=== PATIENT | male | born 1990 | race Hispanic/Latino ===

== ENCOUNTER 2019-10-29 23:12 | Emergency (ER) | payer BC ==
[2019-10-29] MEDS ORDERED: SODIUM CHLORIDE 0.9% (FLUSH) 10 ML SYG IV PRN (23:15)
[2019-10-29] MEDS ORDERED: SODIUM CHLORIDE 0.9% 1000ML 1,000 ML IVS ONE (23:15)
[2019-10-29] MEDS: SODIUM CHLORIDE 0.9% 1000ML 1,000 ML IVS ONE (23:18)
[2019-10-29] MEDS: NALOXONE HCL INJ 0.4 MG/ML VIAL IV ONE (23:19)
--- NOTE | 2019-10-29 23:23 | ED.PDOC ---
History of Present Illness - General Source: police, EMS - History of Present Illness Initial Comments: 29-year-old male brought in by EMS and police for chief complaint of altered mental status and agitation. Patient reportedly called 911 on himself for suicidal ideation. On scene patient was notably intoxicated and combative with police and EMS. There were visible empty containers of alcohol around but no other drugs or weapons. The patient was sedated with Versed 5 mg IV and placed in handcuffs and transported to the ED via EMS. He was noted to have bilateral pinpoint pupils and was given Narcan 2 mg IV with modest response in route. Noted to be tachycardic but vitals otherwise stable. Little other information was noted upon ED arrival. Care patient with initial GCS and 9, only arousable to vigorous sternal rub, localizing to painful stimuli, initially not verbal. Another 0.8 mg Narcan was given IV and patient had improvement in mental status and became awake and alert and verbal. He reported that he has been feeling depressed recently because a friend of his . He did admit to possibly having suicidal thoughts but did not have any particular plans. He denies any suicide attempts, intentional overdoses, or any other attempt of self-harm this evening. He does admit to drinking about 12 wine coolers since earlier this afternoon and reports being very intoxicated with alcohol. He denies any other drug usage this evening. He specifically denies any IV drug use, cocaine, meth, heroin, narcotic pain medications, other. Denies any history of usage of any of these in the past as well. He states that he lives in [place] with his Sister Eden and her boyfriend. He is unsure how he got over here today. He also complains of some shortness of breath, unsure how long it is been going on. Denies any other acute symptoms. Denies specifically chest pain, cough, fevers, chills, weakness, numbness, abdominal pain, nausea, diarrhea, leg swelling. EMS did report that he vomited 1 time in route. <Yehuda Eaton - Last Filed: 10/30/19 06:47> <Misael Walker - Last Filed: 10/30/19 08:35> - General Time Seen by Provider: 10/29/19 23:15 - History of Present Illness Allergies/Adverse Reactions: Allergies NO KNOWN ALLERGY Allergy (Verified 10/29/19 23:15) Review of Systems - Review of Systems Review of Systems: 10/29/19 23:23 As per HPI All other Systems: Reviewed and Negative <Yehuda Eaton - Last Filed: 10/30/19 06:47> Family Medical History - Family History Mother Family History: Unknown <Yehuda Eaton - Last Filed: 10/30/19 06:47> Physical Exam - Physical Exam General Appearance: Other - On arrival GCS of 9, appears disheveled in gym shorts and basketball Jersey with grass down the back Eye Exam: bilateral abnormal pupil - Bilateral pinpoint pupils, minimally reactive to light, bilateral other - Bilateral injected sub-conjunctiva Ears, Nose, Throat: other - Dry appearing oral mucosa. Bilateral green mucus nasal discharge noted. Neck: non-tender, full range of motion, supple, normal inspection Respiratory: chest non-tender, lungs clear, normal breath sounds, no respiratory distress, no accessory muscle use Cardiovascular/Chest: no edema, no gallop, no JVD, no murmur, tachycardia Peripheral Pulses: radial,right: 2+, radial,left: 2+ Gastrointestinal/Abdominal: normal bowel sounds, non tender, soft, no organomegaly, no pulsatile mass Back Exam: normal inspection, no CVA tenderness, no vertebral tenderness Extremity: normal range of motion, non-tender, normal inspection, no pedal edema, no calf tenderness, normal capillary refill, pelvis stable Neurologic: other - On arrival GCS of 9 (E2 V2 M5), arousable only to vigorous sternal rub, answered 1 simple yes/no questions after sternal rub, localizing to painful stimuli, noted to move all extremities spontaneously, no focal neurological deficits noted Skin Exam: normal color, warm/dry <Yehuda Eaton - Last Filed: 10/30/19 06:47> Progress - Progress Progress: 10/29/19 23:26 Altered mental status, agitation -Strongly suspect toxic etiology. Consider overdose. Consider also sepsis, ACS, metabolic derangement, hypoglycemia, dehydration, suicide attempt, other. -Monitor patient closely, place PIV, 2 L normal saline bolus, cardiac and sepsis and tox work-up. 10/29/19 23:57 -Patient remains stable. -I spoke with the patient's sister, Eden Blanc, via telephone who helped provide some collateral information about the patient. She states that the patient does live with her and her boyfriend in their apartment in [place], [place]. She states that they are currently away in [place] at the moment and the patient is staying by himself at the apartment. She has not heard from the patient today but did notice on his Facebook that he had mention he was depressed about his friend passing away and was also asking for drugs via Facebook. She is uncertain if he was able to obtain any drugs or if he took any drugs or attempted to harm himself this evening. She states he does have a history of suicidal ideation and suicide attempts in the past, but the last attempt was many years ago when they were in high school together. These attempts in the past were by cutting his wrist and 1 time by trying to stab himself. He has never attempted to harm himself by overdose or other attempts to her knowledge. To her knowledge she does not believe he is ever used any drugs or substances besides alcohol. She reports that there are guns in the household which belonged to her boyfriend but these are contained locked away in a safe which the boyfriend is the only one with the ellsworth. She states to her knowledge he has never been on any medications for depression or any other psychiatric disorder and is never been admitted to a psychiatric facility. 10/30/19 00:21 -Patient remains stable. Tachycardia is now resolved. Resting comfortably in bed, still easily arouses to verbal stimuli. -Critical lab values called for EtOH level of 168 and lactic acid of 3.2, which I suspect is secondary to his acute alcohol intoxication. Doubtful of sepsis given afebrile with normal WBC and no apparent source of bacterial infection at this time. Chest x-ray is clear per my read. His potassium level is 3.0 and we have begun KCl 20 mEq mixed with 1 L of normal saline which is running over 2 hours in the ED. We will plan to continue to monitor in the ED and repeat the lactic acid level to ensure that it is improving. The patient will likely need to be admitted for further IV fluids and to allow him to sober up before formal psychiatric evaluation can be done. 10/30/19 06:47 -Attempted overnight to admit the patient to the hospital, however, I spoke with the hospitalist Rachna Prasad who stated that the hospital was unable to admit suicidal patients as there is not the staff available to provide the 04/11 monitoring on the hospital floor. Thus patient was continued to be observed in the ED overnight and his repeat serum alcohol level was checked which came down to 17. [facility] has been consulted to evaluate the patient out of the ED and help provide with disposition planning. I will give signout to Dr. Walker who will follow up on the patient. Yehuda Eaton MD Billing #[id number] - Results/Orders Results/Orders: 10/29/19 23:15 IV Care:Saline Lock per Protoc QSHIFT Telemetry Q4H Sodium Chloride 0.9% (Flush) [Saline Flush Syringe] 10 ml IV PRN PRN EKG STAT 10/29/19 23:40 D-DIMER,QUANTITATIVE Stat BLOOD CULTURE Stat 10/30/19 23:15 EKG STAT Laboratory Results - last 24 hr 10/29/19 10/29/19 10/29/19 23:15 23:16 23:40 WBC RBC Hgb Hct MCV MCH MCHC RDW Plt Count MPV Absolute Neuts (auto) Absolute Lymphs (auto) Absolute Monos (auto) Absolute Eos (auto) Absolute Basos (auto) Neutrophils % Lymphocytes % Monocytes % Eosinophils % Basophils % PT INR PTT (SP) Sodium 141 Potassium 3.0 L Chloride 109 Carbon Dioxide 21 Anion Gap 14.0 BUN 11 Creatinine 0.75 BUN/Creatinine Ratio 14.7 Random Glucose 215 H Serum Osmolality 287.1 Lactic Acid Calcium 7.9 L Total Bilirubin 0.4 AST 17 ALT 28 Alkaline Phosphatase 104 Creatine Kinase 68 CK-MB (CK-2) 1.4 CK-MB (CK-2) % Not Reportable Troponin I < 0.02 Serum Total Protein 6.5 Albumin 3.3 Globulin 3.2 Albumin/Globulin Ratio 1.0 L Urine Color Yellow Urine Appearance Clear Urine pH 5.5 Ur Specific Mason <= 1.005 Urine Protein Negative Urine Glucose (UA) 500 H Urine Ketones Negative Urine Blood Trace-lysed H Urine Nitrite Negative Urine Bilirubin Negative Urine Urobilinogen 0.2 Ur Leukocyte Esterase Negative Urine RBC 1-3 Urine WBC 0 Ur Epithelial Cells 0 Urine Bacteria 0 Salicylates Urine Opiates Screen Negative Acetaminophen < 10.0 L Urine Barbiturates Negative Ur Phencyclidine Scrn Negative U Amphetamin/Meth Scrn Negative U Benzodiazepines Scrn Negative U Cocaine Metab Screen Negative U Cannabinoids Screen Negative Ethyl Alcohol 10/29/19 10/29/19 10/29/19 23:40 23:40 23:40 WBC 6.3 RBC 5.04 Hgb 15.0 Hct 44.1 MCV 87.3 MCH 29.7 MCHC 34.0 RDW 13.4 Plt Count 245 MPV 9.0 Absolute Neuts (auto) 4.50 Absolute Lymphs (auto) 1.50 Absolute Monos (auto) 0.30 Absolute Eos (auto) 0.00 Absolute Basos (auto) 0.00 Neutrophils % 70.4 Lymphocytes % 23.3 Monocytes % 5.4 Eosinophils % 0.3 L Basophils % 0.6 PT 9.4 INR < 1.00 PTT (SP) 25.4 Sodium Potassium Chloride Carbon Dioxide Anion Gap BUN Creatinine BUN/Creatinine Ratio Random Glucose Serum Osmolality Lactic Acid Calcium Total Bilirubin AST ALT Alkaline Phosphatase Creatine Kinase CK-MB (CK-2) CK-MB (CK-2) % Troponin I Serum Total Protein Albumin Globulin Albumin/Globulin Ratio Urine Color Urine Appearance Urine pH Ur Specific Mason Urine Protein Urine Glucose (UA) Urine Ketones Urine Blood Urine Nitrite Urine Bilirubin Urine Urobilinogen Ur Leukocyte Esterase Urine RBC Urine WBC Ur Epithelial Cells Urine Bacteria Salicylates Urine Opiates Screen Acetaminophen Urine Barbiturates Ur Phencyclidine Scrn U Amphetamin/Meth Scrn U Benzodiazepines Scrn U Cocaine Metab Screen U Cannabinoids Screen Ethyl Alcohol 168.00 H* 10/29/19 10/30/19 10/30/19 23:40 01:15 06:03 WBC RBC Hgb Hct MCV MCH MCHC RDW Plt Count MPV Absolute Neuts (auto) Absolute Lymphs (auto) Absolute Monos (auto) Absolute Eos (auto) Absolute Basos (auto) Neutrophils % Lymphocytes % Monocytes % Eosinophils % Basophils % PT INR PTT (SP) Sodium Potassium Chloride Carbon Dioxide Anion Gap BUN Creatinine BUN/Creatinine Ratio Random Glucose Serum Osmolality Lactic Acid 3.2 H* 2.4 H* Calcium Total Bilirubin AST ALT Alkaline Phosphatase Creatine Kinase CK-MB (CK-2) CK-MB (CK-2) % Troponin I Serum Total Protein Albumin Globulin Albumin/Globulin Ratio Urine Color Urine Appearance Urine pH Ur Specific Mason Urine Protein Urine Glucose (UA) Urine Ketones Urine Blood Urine Nitrite Urine Bilirubin Urine Urobilinogen Ur Leukocyte Esterase Urine RBC Urine WBC Ur Epithelial Cells Urine Bacteria Salicylates Urine Opiates Screen Acetaminophen Urine Barbiturates Ur Phencyclidine Scrn U Amphetamin/Meth Scrn U Benzodiazepines Scrn U Cocaine Metab Screen U Cannabinoids Screen Ethyl Alcohol 17.10 - EKG/XRAY/CT EKG: Sinus, Tachy - Heart rate 115, no ST elevations noted, no Q waves noted, nonspecific changes noted in the inferior leads, axis normal, intervals normal, no prior EKG for comparison. XRAY: chest - No acute processes per my read <Yehuda Eaton - Last Filed: 10/30/19 06:47> - Progress Progress: 10/30/19 07:02 Dr. Walker received report from Dr. Florentino and assumed care of the patient at this time. Patient is currently resting comfortably, although reporting some mild nausea. Vital signs stable. Awaiting [facility] evaluation. 10/30/19 07:36 Reassessed. Heart rate 86, O2 sats 96%. Patient is awake, alert. He reports some mild nausea and mild headache. Offered Tylenol, patient refuses. Zofran ordered for nausea. 10/30/19 08:11 Spoke with Shaan from [facility]. He came to the ED to evaluate the patient. Patient denies any clear plan at this time. He states his suicidal ideations were related to recent of a friend and became worse after he drank alcohol last night. He feels he is low risk for suicide at this time. Does not feel the patient needs inpatient treatment at this time. We will give outpatient psychiatric resources at this time. <Misael Walker - Last Filed: 10/30/19 08:35> Departure - Departure Activity: increase activity as tolerated <Yehuda Eaton - Last Filed: 10/30/19 06:47> - Departure Time of Disposition: 08:22 Activity: increase activity as tolerated <Misael Walker - Last Filed: 10/30/19 08:35> - Departure Clinical Impression: Suicidal ideation Alcohol intoxication Qualifiers: Complication of substance-induced condition: with delirium Qualified Code(s): F10.921 - Alcohol use, unspecified with intoxication delirium Disposition: Discharge to Home or Self Care Condition: Good Instructions: DI for Drug Abuse and Drug Addiction Additional Instructions: Return to the emergency room immediately for any worsening thoughts of hurting yourself, thoughts of hurting anyone else, or any auditory or visual hallucinations. Decrease your alcohol intake. Follow-up with provided outpatient psychiatric resources next week.
[2019-10-30] MEDS: KCL 20 MEQ/NS 1,000 ML IVS ONE (00:08)
--- NOTE | 2019-10-30 00:27 | RAD ---
EXAM DESCRIPTION: Chest,1 View CLINICAL HISTORY: 29 years Male, altered mental status, dyspnea COMPARISON: None TECHNIQUE: Single AP chest radiograph. FINDINGS: Clear lungs. No pneumothorax or pleural effusion. Normal cardiomediastinal contour. Normal osseous structures. IMPRESSION: 1. No discrete active cardiopulmonary process. Please note that chest radiographs have low sensitivity for detection of subtle groundglass opacities. Electronically signed by: Robert Cat MD 10/30/2019 12:26 AM CDT
[2019-10-30] MEDS ORDERED: ONDANSETRON INJ 4 MG/2 ML VIAL ONE (07:24)
[2019-10-30] MEDS: ONDANSETRON INJ 4 MG/2 ML VIAL IV ONE (07:27)
[2019-10-30 09:31] VITALS: BP 119/67; TEMP 97.9; O2SAT 98
== END 2019-10-30 09:10 | disposition home or self-care (01) ==
LOC: ER 23:12
DX: R45.851 Suicidal ideations (principal); F10.921 Alcohol use, unspecified with intoxication delirium; R00.0 Tachycardia, unspecified; R06.02 Shortness of breath
CPT/HCPCS: 36415; 71045; 80053; 80307; 80320; 80329; 81001; 82550; 82553; 83605; 84484; 85025; 85610; 85730; 87040; 87635; 93005; J2310; J2405; J3480; J7030